=== PATIENT | female | born 1965 | race Caucasian/White ===

== ENCOUNTER 2019-05-07 13:22 | Emergency (ER) | payer MEDICAID ==
[~2019-05-07] VITALS: Ht 175.3 cm; Wt 53.0 kg
[2019-05-07] MEDS ORDERED: KETOROLAC 60MG/2ML VIAL IM ONE (14:00)
[2019-05-07 14:10] VITALS: BP 120/85
== END 2019-05-07 14:10 | disposition home or self-care (01) ==
LOC: ER 13:49
DX: R51 Headache (principal)
CPT/HCPCS: 96372; 99283; J1885